=== PATIENT | male | born 1980 | race Caucasian/White ===

== ENCOUNTER 2019-09-15 15:17 | Emergency (ER) | payer OTHER, MEDICARE ==
[2019-09-15] MEDS ORDERED: SODIUM CHLORIDE 0.9% 1,000 ML IV STA (15:50)
--- NOTE | 2019-09-15 15:57 | ED ---
General Adult HPI - General Chief complaint: Syncope Stated complaint: Dizziness Time Seen by Provider: 09/15/19 15:25 Source: patient Mode of arrival: wheelchair Limitations: no limitations - History of Present Illness Initial comments: Patient is a 39-year-old male presenting to emergency Department with a chief complaint of near-syncope. He states that he has been battling with a sinus infection over the last 3 days with gradual increase in severity. Patient does report sinus drainage yesterday but minimal drainage today. He reports there is pressure in his face specifically his frontal and maxillary region. Patient reports some pain behind his eyes as well. Patient states he had several near- syncopal episodes today and states this is most likely due to dehydration. Patient reports not drinking water as of recently. Patient states that he previously had been dehydrated and felt very similar as far symptoms are considered. Denies any blurry vision nausea vomiting diarrhea. He does state yesterday he had a fever but not today. Denies taking medication to alleviate his symptoms. Patient is a smoker recently quit. Patient denies any lightheadedness dizziness or blurry vision at this time. Denies shortness of breath chest pain but does report a cough over the last several days. - Related Data Allergies Allergy/AdvReac Type Severity Reaction Status Date / Time No Known Allergies Allergy Verified 09/15/19 15:23 Review of Systems ROS Statement: Those systems with pertinent positive or pertinent negative responses have been documented in the HPI. ROS Other: All systems not noted in ROS Statement are negative. Past Medical History Past Medical History: GERD/Reflux History of Any Multi-Drug Resistant Organisms: None Reported Past Surgical History: Appendectomy Additional Past Surgical History / Comment(s): eye Past Psychological History: No Psychological Hx Reported Smoking Status: Former smoker Past Alcohol Use History: Occasional Past Drug Use History: None Reported General Exam Limitations: no limitations General appearance: alert, in no apparent distress Head exam: Present: atraumatic, normocephalic, normal inspection Eye exam: Present: normal appearance, PERRL, EOMI Pupils: Present: normal accommodation ENT exam: Present: normal exam, normal oropharynx (Maxillary and frontal sinus tenderness on palpation), mucous membranes moist, TM's normal bilaterally, normal external ear exam Neck exam: Present: normal inspection, full ROM Respiratory exam: Present: normal lung sounds bilaterally. Absent: respiratory distress, wheezes Cardiovascular Exam: Present: regular rate, normal rhythm, normal heart sounds Extremities exam: Present: normal inspection, full ROM Back exam: Present: normal inspection, full ROM. Absent: tenderness Neurological exam: Present: alert, oriented X3 Psychiatric exam: Present: normal affect, normal mood Skin exam: Present: warm, dry, intact, normal color Course Vital Signs 09/15/19 09/15/19 15:20 15:45 Temperature 98.0 F Pulse Rate 83 Respiratory 18 20 Rate Blood Pressure 138/76 O2 Sat by Pulse 98 Oximetry Medical Decision Making - Medical Decision Making Patient is a 39-year-old male with no significant past medical history presenting to the emergency department with a chief complaint of a near-syncopal episode. On exam patient does have dry mucous members. He also does have tenderness to palpation around the maxillary and frontal sinuses. He does not have any rhinorrhea at this time but he did have yesterday. He also had a fever yesterday but not at this moment. Patient was also reporting episodes of sweating more than usual. Patient has been exposed to sick people. Patient was given a liter of fluid for rehydration. Patient is influenza B positive. Strict return parameters were thoroughly discussed the patient was understanding and agreeable. Patient is given a Medrol Dosepak for symptomatically. 91st Tamiflu as his symptoms have been ongoing for about 3 days at this one. Case discussed with physician. - Lab Data Result diagrams: 09/15/19 15:59 09/15/19 15:59 Lab Results 09/15/19 09/15/19 09/15/19 Range/Units 15:59 15:59 15:59 WBC 5.6 (3.8-10.6) k/uL RBC 4.60 (4.30-5.90) m/uL Hgb 14.9 (13.0-17.5) gm/dL Hct 42.8 (39.0-53.0) % MCV 93.0 (80.0-100.0) fL MCH 32.3 (25.0-35.0) pg MCHC 34.7 (31.0-37.0) g/dL RDW 12.0 (11.5-15.5) % Plt Count 124 L (150-450) k/uL Neutrophils % 64 % Lymphocytes % 18 % Monocytes % 14 % Eosinophils % 1 % Basophils % 1 % Neutrophils # 3.6 (1.3-7.7) k/uL Lymphocytes # 1.0 (1.0-4.8) k/uL Monocytes # 0.8 (0-1.0) k/uL Eosinophils # 0.0 (0-0.7) k/uL Basophils # 0.1 (0-0.2) k/uL Sodium 133 L (137-145) mmol/L Potassium 3.7 (3.5-5.1) mmol/L Chloride 98 (98-107) mmol/L Carbon Dioxide 24 (22-30) mmol/L Anion Gap 11 mmol/L BUN 7 L (9-20) mg/dL Creatinine 0.86 (0.66-1.25) mg/dL Est GFR (CKD-EPI)AfAm >90 (>60 ml/min/1.73 sqM) Est GFR (CKD-EPI)NonAf >90 (>60 ml/min/1.73 sqM) Glucose 104 H (74-99) mg/dL Calcium 8.6 (8.4-10.2) mg/dL Total Bilirubin 0.9 (0.2-1.3) mg/dL AST 39 (17-59) U/L ALT 21 (4-49) U/L Alkaline Phosphatase 44 (38-126) U/L Total Protein 6.9 (6.3-8.2) g/dL Albumin 4.2 (3.5-5.0) g/dL Urine Color Urine Appearance (Clear) Urine pH (5.0-8.0) Ur Specific [place] (1.001-1.035) Urine Protein (Negative) Urine Glucose (UA) (Negative) Urine Ketones (Negative) Urine Blood (Negative) Urine Nitrite (Negative) Urine Bilirubin (Negative) Urine Urobilinogen (<2.0) mg/dL Ur Leukocyte Esterase (Negative) Influenza Type A RNA Not Detected (Not Detectd) Influenza Type B (PCR) Detected H (Not Detectd) 09/15/19 Range/Units 16:15 WBC (3.8-10.6) k/uL RBC (4.30-5.90) m/uL Hgb (13.0-17.5) gm/dL Hct (39.0-53.0) % MCV (80.0-100.0) fL MCH (25.0-35.0) pg MCHC (31.0-37.0) g/dL RDW (11.5-15.5) % Plt Count (150-450) k/uL Neutrophils % % Lymphocytes % % Monocytes % % Eosinophils % % Basophils % % Neutrophils # (1.3-7.7) k/uL Lymphocytes # (1.0-4.8) k/uL Monocytes # (0-1.0) k/uL Eosinophils # (0-0.7) k/uL Basophils # (0-0.2) k/uL Sodium (137-145) mmol/L Potassium (3.5-5.1) mmol/L Chloride (98-107) mmol/L Carbon Dioxide (22-30) mmol/L Anion Gap mmol/L BUN (9-20) mg/dL Creatinine (0.66-1.25) mg/dL Est GFR (CKD-EPI)AfAm (>60 ml/min/1.73 sqM) Est GFR (CKD-EPI)NonAf (>60 ml/min/1.73 sqM) Glucose (74-99) mg/dL Calcium (8.4-10.2) mg/dL Total Bilirubin (0.2-1.3) mg/dL AST (17-59) U/L ALT (4-49) U/L Alkaline Phosphatase (38-126) U/L Total Protein (6.3-8.2) g/dL Albumin (3.5-5.0) g/dL Urine Color Yellow Urine Appearance Clear (Clear) Urine pH 6.0 (5.0-8.0) Ur Specific [place] 1.006 (1.001-1.035) Urine Protein Negative (Negative) Urine Glucose (UA) Negative (Negative) Urine Ketones Trace H (Negative) Urine Blood Negative (Negative) Urine Nitrite Negative (Negative) Urine Bilirubin Negative (Negative) Urine Urobilinogen <2.0 (<2.0) mg/dL Ur Leukocyte Esterase Negative (Negative) Influenza Type A RNA (Not Detectd) Influenza Type B (PCR) (Not Detectd) Disposition Clinical Impression: Influenza, Near syncope Disposition: HOME SELF-CARE Condition: Stable Instructions (If sedation given, give patient instructions): Influenza (DC) Additional Instructions: Please drink lots of fluids. Take prescribed medication as directed. Please return to emergency department if symptoms worsen. Is patient prescribed a controlled substance at d/c from ED?: No Referrals: [facility],Clinic [Primary Care Provider] - 1-2 days Time of Disposition: 17:09
[2019-09-15 16:08] LABS: Basophils # (A) 0.1 k/uL (0-0.2); Basophils % (A) 1 %; Eosinophils % (A) 1 %; HCT 42.8 % (39.0-53.0); HGB 14.9 gm/dL (13.0-17.5); Lymphocytes % (A) 18 %; MCH 32.3 pg (25.0-35.0); MCHC 34.7 g/dL (31.0-37.0); Mean Platelet Volume 8.7; Monocytes # (A) 0.8 k/uL (0-1.0); Monocytes % (A) 14 %; Neutrophils # (A) 3.6 k/uL (1.3-7.7); Neutrophils % (A) 64 %; Platelet Count 124 k/uL (150-450); WBC 5.6 k/uL (3.8-10.6)
--- NOTE | 2019-09-15 16:15 | XR ---
EXAMINATION TYPE: XR chest 2V DATE OF EXAM: 09/15/2019 COMPARISON: None INDICATION: Syncope, sinus infections TECHNIQUE: Frontal and lateral views of the chest are obtained. FINDINGS: The heart size is normal. The pulmonary vasculature is normal. The lungs are clear. IMPRESSION: 1. No acute pulmonary process.
[2019-09-15 16:17] LABS: ALT 21 U/L (4-49); AST 39 U/L (17-59); African American GFR (CKD) >90 (>60 ml/min/1.73 sqM); Albumin 4.2 g/dL (3.5-5.0); Alkaline Phosphatase 44 U/L (38-126); Anion Gap 11 mmol/L; Blood Urea Nitrogen 7 mg/dL (9-20); Calcium 8.6 mg/dL (8.4-10.2); Carbon Dioxide 24 mmol/L (22-30); Chloride 98 mmol/L (98-107); Glucose 104 mg/dL (74-99); Non-African American GFR(CKD) >90 (>60 ml/min/1.73 sqM); Potassium 3.7 mmol/L (3.5-5.1); Sodium 133 mmol/L (137-145); Total Bilirubin 0.9 mg/dL (0.2-1.3); Total Protein 6.9 g/dL (6.3-8.2)
[2019-09-15 16:19] LABS: Appearance,Urine Clear (Clear); Bilirubin,Urine Negative (Negative); Blood,Urine Negative (Negative); Color,Urine Yellow; Glucose,Urine (UA) Negative (Negative); Ketones,Urine Trace (Negative); Leukocyte Esterase,Urine Negative (Negative); Nitrite,Urine Negative (Negative); Protein,Urine Negative (Negative); Specific Gravity,Urine 1.006 (1.001-1.035); Urobilinogen,Urine <2.0 mg/dL (<2.0)
[2019-09-15 17:36] VITALS: BP 108/67; PULSE 81; RESP 18; TEMP 98.7
== END 2019-09-15 17:36 | disposition home or self-care (01) ==
LOC: EC 15:17
DX: J11.1 Influenza due to unidentified influenza virus with other respiratory manifestations (principal); R55 Syncope and collapse; Z87.891 Personal history of nicotine dependence
CPT/HCPCS: 36415; 71046; 80053; 81003; 85025; 87502; 93005; 96360; 99284

== ENCOUNTER → 2020-02-04 | Outpatient (CLI) | payer OTHER ==
--- NOTE | 2020-02-04 14:31 | US ---
EXAMINATION TYPE: US abdomen limited DATE OF EXAM: 02/04/2020 COMPARISON: NONE CLINICAL HISTORY: R22.9 Localized swelling, mass and lump, unspec. Midline epigastric/inferior to rib palpable lump. Patient states doesn't know how long it has been there, just noticed it. Area of concern scanned. Anterior nonvascular lesion seen = 1.7 x 1.2 x 0.9 cm IMPRESSION: At the level in the anterior abdomen, epigastric and inferior rib region there is a focu s of mixed echoes which may correspond to costochondral junction, this may be confirmed with CT chest with overlying marker.
== END | disposition home or self-care (01) ==
LOC: RADUSWWP 13:36
DX: R22.2 Localized swelling, mass and lump, trunk (principal)
CPT/HCPCS: 76705

== ENCOUNTER → 2020-02-27 | Outpatient (CLI) | payer OTHER ==
--- NOTE | 2020-02-27 10:23 | CT ---
EXAMINATION TYPE: CT chest w con DATE OF EXAM: 02/27/2020 COMPARISON: None HISTORY: 40-year-old male Lump on chest at xiphoid level marked medially and laterally by BBs TECHNIQUE: Contiguous axial scanning of the chest after the administration of 100 mL of Isovue 300. Coronal/sagittal reconstructions performed. CT DLP: 320.8mGycm. Automatic exposure control utilized for a dose reduction. FINDINGS: Heart normal size without pericardial effusion. Aortic root and borderline ectatic at 2.5 cm. Aorta otherwise normal caliber with conventional arch v essel branching anatomy. Mild bilateral gynecomastia. Subcarinal lymph node measures 8 mm. No thoracic lymphadenopathy by CT s ize criteria. Minimal right apical pleural parenchymal scarring. 5 mm medial right lower lobe pulmonary nodule, axial image 32. No consolidation or pleural effusion. Small hiatal hernia. Visualized upper abdomen shows prominent fluid-filled small bowel loops in the l eft side of the abdomen which may be transient. Bones: Scattered endplate Schmorl's nodes within the lower thoracic spine. No osseous process. Palpab le markers overlying the right paramedian anterior lower chest. Underlying this, there is a linear [place] extension from the xiphoid process protruding minimally anteriorly asymmetric to the contralateral side, axial image 52 and sagittal image 60. Coronal image 4. IMPRESSION: 1. Palpable markers along the right paramedian anterior lower chest. Underlying this, there is a line ar bony extension from the xiphoid process protruding minimally anteriorly, asymmetric to the contral ateral side, likely accounting for the palpable abnormality. No abnormal mass or fluid collection is seen. 2. 5 mm right lower lobe pulmonary nodule. Per Fleischner guidelines, one-year follow-up recommended to reassess. 3. Small hiatal hernia.
== END | disposition home or self-care (01) ==
LOC: RADCTMAIN 08:58
PROVIDERS: ATTEND Physician Assistant Medical
DX: R91.1 Solitary pulmonary nodule (principal); R91.8 Other nonspecific abnormal finding of lung field
CPT/HCPCS: 71260; Q9967

== ENCOUNTER → 2021-05-05 | Outpatient (CLI) | payer OTHER ==
--- NOTE | 2021-05-05 23:29 | CT ---
EXAMINATION TYPE: CT chest wo/w con DATE OF EXAM: 05/05/2021 COMPARISON: 02/27/2020 HISTORY: nodules CT DLP: 608.8 mGycm Automated exposure control for dose reduction was used. CONTRAST: CT scan of the chest is performed without and with IV Contrast, patient injected with 100 mL of Isovu e 300. FINDINGS: LUNGS: Unchanged 4 mm pulmonary nodule of the right lower lobe (4:26). No pleural effusion. No pneumo thorax. The tracheobronchial tree is patent. MEDIASTINUM/SOFT TISSUES: No axillary, hilar, or mediastinal lymphadenopathy greater than 1 cm. Cardi ac size is normal. No pericardial effusion. No thoracic aortic aneurysm. UPPER ABDOMEN: No adrenal nodule. OSSEOUS: No acute osseous abnormality. IMPRESSION: Unchanged 4 mm pulmonary nodule of the right lower lobe versus 02/27/2020 comparison, most likely albaro gn. No further follow-up indicated.
== END | disposition home or self-care (01) ==
LOC: RADCTMAIN 17:59
DX: R91.1 Solitary pulmonary nodule (principal)
CPT/HCPCS: 71270; Q9967